=== PATIENT | male | born 1950 | race Caucasian/White ===

== ENCOUNTER 2016-09-07 08:24 | Day surgery (SDC) | payer BC ==
--- NOTE | ~2016-09-07 | EGD ---
EGD REPORT [facility] [address] [address] NAME: JULIET DELGADO : [birth year] STATUS : REG [facility] [place] PAT#: [id number] AGE: 66 ADM/REG DATE : 09/07/16 MR#: [id number] REPORT SERV DATE: 09/07/16 DICTATED BY: CATRACHITA MEJIA DATE: 09/07/16 REPORT STATUS : Draft TRANSCRIBED BY: [employer] DATE: 09/07/16 [facility] Center Patient Name: Juliet Delgado Date of : 1950 Attending MD: CATRACHITA MEJIA MD Procedure Date No Time: 09/07/2016 Procedure: Upper GI endoscopy Indications: Dysphagia, Recent food impaction (off PPI) Referring MD: SAMANTA SOTO MD Medicines: See the Anesthesia note for documentation of the administered medications Complications: No immediate complications. Procedure: Pre-Anesthesia Assessment: - ASA Grade Assessment: II - A patient with mild systemic disease. After obtaining informed consent, the endoscope was passed under direct vision. Throughout the procedure, the patient's blood pressure, pulse, and oxygen saturations were monitored continuously. The GIF [id number] was introduced through the mouth, and advanced to the second part of duodenum. The upper GI endoscopy was accomplished without difficulty. The patient tolerated the procedure well. Findings: The examined duodenum was normal. Mild inflammation was found in the gastric antrum. Biopsies were taken with a cold forceps for histology. The cardia and gastric fundus were normal on retroflexion. A small hiatus hernia was present. The examined esophagus was moderately tortuous. Large ulcer at distal esophagus Impression: - Normal examined duodenum. - Gastritis. Biopsied. - Hiatus hernia. - Tortuous esophagus. - Large ulcer at distal esophagus Recommendation: - Patient has a contact number available for emergencies. The signs and symptoms of potential delayed complications were discussed with the patient. Return to normal activities tomorrow. Written discharge instructions were provided to the patient. - Soft diet. EGD REPORT [address] [place]. [address] NAME: JULIET DELGADO : [birth year] STATUS : REG [facility] [place] PAT#: [id number] AGE: 66 ADM/REG DATE : 09/07/16 MR#: [id number] REPORT SERV DATE: 09/07/16 DICTATED BY: CATRACHITA MEJIA DATE: 09/07/16 REPORT STATUS : Draft TRANSCRIBED BY: [employer] DATE: 09/07/16 - Continue present medications. - Nexium 40mg twice per day for 4 weeks, then one every day Call office to schedule EGD for 3-4 weeks Procedure Code(s): --- Professional --- 81321, Esophagogastroduodenoscopy, flexible, transoral; with biopsy, single or multiple Diagnosis Code(s): --- Professional --- K29.70, Gastritis, unspecified, without bleeding K44.9, Diaphragmatic hernia without obstruction or gangrene Q39.9, Congenital malformation of esophagus, unspecified R13.10, Dysphagia, unspecified CPT copyright 2013 [employer]. All rights reserved. The codes documented in this report are preliminary and upon rn endoscopy review may be revised to meet current compliance requirements. Catrachita Mejia MD CATRACHITA MEJIA MD 09/07/2016 9:23 AM This report has been signed electronically. Number of Addenda: 0 Note Initiated On: 09/07/2016 9:05 AM Scope Withdrawal Time 0 hours 0 minutes 0 seconds [id number] [place] [id number]
[~2016-09-07 08:24] MED LIST: CALTRA600D PO; COZ50 PO; PROSTATE SUPPLEMENT PO; UROXATRAL PO
[2016-10-31] MEDS ORDERED: NEXIUM40 PO (11:57)
== END 2016-09-07 23:59 | disposition home or self-care (01) ==
LOC: DMU 08:24
PROVIDERS: Internal Medicine Gastroenterology
PROC: 0DB68ZX Excision of Stomach, Via Natural or Artificial Opening Endoscopic, Diagnostic (ICD-10-PCS; principal; 2016-09-07 10:00)
DX: K29.50 Unspecified chronic gastritis without bleeding (principal); K44.9 Diaphragmatic hernia without obstruction or gangrene; G47.33 Obstructive sleep apnea (adult) (pediatric); K21.9 Gastro-esophageal reflux disease without esophagitis; I10 Essential (primary) hypertension; Q39.9 Congenital malformation of esophagus, unspecified; Z98.890 Other specified postprocedural states; Z79.52 Long term (current) use of systemic steroids; Z79.899 Other long term (current) drug therapy
CPT/HCPCS: 88305; 88342